=== PATIENT | female | born 1995 | race Caucasian/White ===

== ENCOUNTER 2018-01-13 17:29 | Emergency (ER) | payer BC, OTHER | END 2018-01-13 18:43 | disposition home or self-care (01) | LOC: E/R 17:29 | DX: G24.3 Spasmodic torticollis (principal); X58.XXXA Exposure to other specified factors, initial encounter; Y92.9 Unspecified place or not applicable | CPT/HCPCS: 72040; 99283-25 ==

== ENCOUNTER 2019-02-18 05:24 | Emergency (ER) | payer BC ==
[2019-02-18] MEDS: ONDANSETRON (ODT) 4 MG TAB ODT (05:50)
[2019-02-18 07:58] LABS: UR BACTERIA FEW /HPF (NONE SEEN); UR MUCUS MODERATE /HPF (NONE SEEN); UR RBC 2 /HPF (0-5); UR SQUAMOUS EPITHELIAL CELL MODERATE /HPF (FEW); UR WBC 2 /HPF (0-5)
[2019-02-18 08:10] LABS: ADD UMIC YES; UR ASCORBIC ACID NEGATIVE (NEGATIVE); UR BILIRUBIN (Dip) NEGATIVE (NEGATIVE); UR BLOOD (Dip) 1+ mg/dL (NEGATIVE); UR CLARITY TURBID (CLEAR); UR COLOR AMBER (YELLOW); UR GLUCOSE (Dip) NEGATIVE (NEGATIVE); UR KETONES (Dip) NEGATIVE (NEGATIVE); UR LEUKOCYTE ESTERASE (Dip) NEGATIVE Leu/ul (NEGATIVE); UR NITRITE (Dip) NEGATIVE (NEGATIVE); UR SPECIFIC GRAVITY (Dip) 1.024 (1.003-1.030); UR TOTAL PROTEIN (Dip) NEGATIVE (NEGATIVE); UR UROBILINOGEN (Dip) NEGATIVE (NEGATIVE)
== END 2019-02-18 08:29 | disposition home or self-care (01) ==
LOC: FTE 05:24
DX: R19.7 Diarrhea, unspecified (principal); R11.10 Vomiting, unspecified
CPT/HCPCS: 81001; 84703; 87086; 99283